=== PATIENT | male | born 1995 | race Two or more races ===

== ENCOUNTER 2016-08-19 16:03 | Emergency (ER) | payer BC ==
[2016-08-19 16:19] VITALS: BP 146/69
--- NOTE | 2016-08-19 17:14 | CR ---
Clinical history: 20-year-old male with "constipation" and abdominal pain. Interpretation: (4 films) Minimal stool identified in the ascending right colon and rectum. Large ab dominal soft tissue pannus. No foreign bodies, abdominal soft tissue mass lesion, pathologic calcification or signs of mechanica l bowel obstruction. Lung bases clear. Normal cardiac silhouette. AP lumbar spine, pelvis and hips unremarkable. CONCLUSION: Negative exam.
--- NOTE | 2016-08-19 18:01 | EDM.PDOC ---
Scribed by Saadia Moscoso 08/19/16 2022 for Isaias Childress MD ED HPI GENERAL MEDICAL PROBLEM - General Chief Complaint: Abdominal Pain Stated Complaint: POSSIBLE KIDNEY STONE [id number] Time Seen by Provider: 08/19/16 17:03 Source of Information: Reports: Patient, RN, RN Notes Reviewed History Limitations: Reports: Other - History of Present Illness INITIAL COMMENTS - FREE TEXT/NARRATIVE: Complaint of onset of left sided abdominal pain 2 days ago. Patient reports only small hard stool and constipation x1 week. Denies fever, chills, nausea, vomiting or diarrhea. Left Abdomen Pain Score (Numeric/FACES): 6 - Related Data Allergies Allergy/AdvReac Type Severity Reaction Status Date / Time cefprozil [From Cefzil] Allergy Rash Verified 08/19/16 16:20 Home Meds: Home Meds . [No Known Home Meds] 08/19/16 [History] Past Medical History HEENT History: Reports: None Cardiovascular History: Reports: None Respiratory History: Reports: None Gastrointestinal History: Reports: None Genitourinary History: Reports: None Musculoskeletal History: Reports: None Neurological History: Reports: None Psychiatric History: Reports: None Endocrine/Metabolic History: Reports: None, Obesity/BMI 30+ Hematologic History: Reports: None Immunologic History: Reports: None Oncologic (Cancer) History: Reports: None Dermatologic History: Reports: None - Infectious Disease History Infectious Disease History: Reports: None - Past Surgical History Head Surgeries/Procedures: Reports: None HEENT Surgical History: Reports: None Social & Family History - Tobacco Use Smoking Status *Q: Never Smoker Second Hand Smoke Exposure: No - Caffeine Use Caffeine Use: Reports: Soda, Tea - Recreational Drug Use Recreational Drug Use: No ED ROS GENERAL - Review of Systems Review Of Systems: ROS reveals no pertinent complaints other than HPI. ED EXAM, GI/ABD - Physical Exam Exam: See Below Exam Limited By: No Limitations General Appearance: Obese Head: Atraumatic, Normocephalic Neck: Normal Inspection, Supple, Non-Tender, Full Range of Motion Respiratory/Chest: No Respiratory Distress, Lungs Clear, Normal Breath Sounds, No Accessory Muscle Use, Chest Non-Tender Cardiovascular: Normal Peripheral Pulses, Regular Rate, Rhythm, No Edema, No Gallop, No JVD, No Murmur, No Rub GI/Abdominal: Normal Bowel Sounds, Soft, No Distention, No Abnormal Bruit, Tenderness (left upper and lower quadrant, mild. ). No: Guarding, Rebound, Rigidity (Male) Exam: Deferred Rectal (Males) Exam: Deferred Back Exam: Normal Inspection, Full Range of Motion, NT Extremities: Normal Inspection, Normal Range of Motion, Non-Tender, Normal Capillary Refill, No Pedal Edema Neurological: Alert, Oriented, CN II-XII Intact, Normal Cognition, Normal Gait, Normal Reflexes, No Motor/Sensory Deficits Psychiatric: Normal Affect, Normal Mood Skin Exam: Warm, Dry, Intact, Normal Color, No Rash Course - Vital Signs Last Recorded V/S: Last Vital Signs Temp 36.4 C 08/19/16 16:12 Pulse 96 08/19/16 16:12 Resp 16 08/19/16 16:12 BP 146/69 H 08/19/16 16:12 Pulse Ox 97 08/19/16 16:12 - Orders/Labs/Meds Labs: Laboratory Tests 08/19/16 Range/Units 16:30 Urine Color Yellow (YELLOW) Urine Appearance Clear (CLEAR) Urine pH 6.0 (5.0-9.0) Ur Specific [place] >= 1.030 (1.005-1.030) Urine Protein Negative (NEGATIVE) Urine Glucose (UA) 100 H (NEGATIVE) Urine Ketones Negative (NEGATIVE) Urine Occult Blood Negative (NEGATIVE) Urine Nitrite Negative (NEGATIVE) Urine Bilirubin Negative (NEGATIVE) Urine Urobilinogen 0.2 (0.2-1.0) mg/dL Ur Leukocyte Esterase Negative (NEGATIVE) Urine RBC 0-5 /HPF Urine WBC 0-5 (0-5/HPF) /HPF Ur Epithelial Cells Few /HPF Urine Bacteria Few (0-FEW/HPF) /HPF Urine Mucus Moderate H /LPF - Radiology Interpretation Free Text/Narrative:: Abdomen x-rays: Per rad report shows negative exam. Departure - Departure Time of Disposition: 17:38 Disposition: Home, Self-Care 01 Condition: Good Clinical Impression: Abdominal pain, Constipation - Discharge Information Instructions: Abdominal Pain, Adult, [id number], Constipation, Adult, Easy-to -Read Forms: ED Department Discharge Additional Instructions: Drink half bottle of magnesium citrate solution this evening and the other half in the morning. Drink plenty of water. Follow up in clinic if not improved in the next 102 days. Return to the emergency room if any further develops. I have read and agree with the documentation that has been completed regarding this visit. By signing this record, I attest that the documentation was completed in my physical presence and is an accurate record of the encounter.
== END 2016-08-19 17:48 | disposition home or self-care (01) ==
LOC: DL.ED 16:03
DX: K59.00 Constipation, unspecified (principal); E66.9 Obesity, unspecified; Z68.39 Body mass index [BMI] 39.0-39.9, adult; Z88.8 Allergy status to other drugs, medicaments and biological substances
CPT/HCPCS: 74020; 81001; 99284

== ENCOUNTER 2016-11-20 20:00 | Emergency (ER) | payer BC ==
[2016-11-21 02:14] VITALS: BP 138/80
[2016-11-21] MEDS ORDERED: Azithromycin 250 MG Tab PO ONE ×2 (02:51→03:01)
--- NOTE | 2016-11-21 03:06 | EDM.PDOC ---
ED HPI GENERAL MEDICAL PROBLEM - General Chief Complaint: Genitourinary Problem Stated Complaint: GROIN PAIN [id number] Time Seen by Provider: 11/21/16 02:30 Source of Information: Reports: Patient History Limitations: Reports: No Limitations - History of Present Illness INITIAL COMMENTS - FREE TEXT/NARRATIVE: ED with complaint of pain to the end of his penis he noted yesterday, no pain with urination, Few concerns with STD. Notes crusting to end of foreskin. No scrotal pain. Penis Pain Score (Numeric/FACES): 7 - Related Data Allergies Allergy/AdvReac Type Severity Reaction Status Date / Time cefprozil [From Cefzil] Allergy Rash Verified 11/20/16 20:35 Home Meds: Home Meds . [No Known Home Meds] 08/19/16 [History] Past Medical History HEENT History: Reports: None Cardiovascular History: Reports: None Respiratory History: Reports: None Gastrointestinal History: Reports: None, GERD Genitourinary History: Reports: None Musculoskeletal History: Reports: None Neurological History: Reports: None Psychiatric History: Reports: None Endocrine/Metabolic History: Reports: None, Obesity/BMI 30+ Hematologic History: Reports: None Immunologic History: Reports: None Oncologic (Cancer) History: Reports: None Dermatologic History: Reports: None - Infectious Disease History Infectious Disease History: Reports: None - Past Surgical History Head Surgeries/Procedures: Reports: None HEENT Surgical History: Reports: None Social & Family History - Family History Family Medical History: Noncontributory - Tobacco Use Smoking Status *Q: Never Smoker Second Hand Smoke Exposure: No - Caffeine Use Caffeine Use: Reports: Coffee, Energy Drinks, Soda - Recreational Drug Use Recreational Drug Use: No ED ROS GENERAL - Review of Systems Review Of Systems: ROS reveals no pertinent complaints other than HPI. ED EXAM, RENAL/ - Physical Exam Exam: See Below Exam Limited By: No Limitations General Appearance: Alert, No Apparent Distress Eye Exam: Bilateral Eye: EOMI Ears: Normal External Exam Nose: Normal Inspection Throat/Mouth: Normal Voice Neck: Normal Inspection Respiratory/Chest: No Respiratory Distress Cardiovascular: Normal Peripheral Pulses (Male) Exam: Penile Lesions (uncirmcumcised, distal foreskin when slightly retracted crusted, no single lesions noted, tender ). No: Scrotal Swelling, Scrotum Tenderness (L), Scrotum Tenderness (R) Neurological: Alert, Oriented, Normal Cognition Psychiatric: Normal Affect, Normal Mood Skin Exam: Warm, Erythema, Rash Course - Vital Signs Last Recorded V/S: Last Vital Signs Temp 96.4 F 11/21/16 02:13 Pulse 98 11/21/16 02:13 Resp 16 11/21/16 02:13 BP 138/80 11/21/16 02:13 Pulse Ox 96 11/21/16 02:13 - Orders/Labs/Meds Meds: Medications Discontinued Medications Generic Name Dose Route Start Last Admin Trade Name Pola PRN Reason Stop Dose Admin Azithromycin 1,000 mg 11/21/16 02:51 Zithromax PO 11/21/16 02:52 ONETIME ONE Azithromycin 2,000 mg 11/21/16 03:01 11/21/16 03:16 Zithromax PO 11/21/16 03:02 2,000 mg ONETIME ONE Administration Departure - Departure Time of Disposition: 03:03 Disposition: Home, Self-Care 01 Condition: Good Clinical Impression: Penile discharge, without blood - Discharge Information Instructions: Balanitis Forms: ED Department Discharge Additional Instructions: nystatin ointment to area three times daily for 5 days clinic follow up if not improving.
== END 2016-11-21 03:26 | disposition home or self-care (01) ==
LOC: DL.ED 20:00
DX: R36.9 Urethral discharge, unspecified (principal); K21.9 Gastro-esophageal reflux disease without esophagitis; E66.9 Obesity, unspecified; Z88.1 Allergy status to other antibiotic agents; Z68.41 Body mass index [BMI] 40.0-44.9, adult
CPT/HCPCS: 87491; 87591; 99283; A9270

== ENCOUNTER 2017-06-28 13:27 | Emergency (ER) | payer OTHER, BC ==
[2017-06-28 13:37] VITALS: BP 138/75
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
== END 2017-06-28 14:04 | disposition home or self-care (01) ==
LOC: DL.ED 13:27
DX: S60.416A Abrasion of right little finger, initial encounter (principal); E11.9 Type 2 diabetes mellitus without complications; X58.XXXA Exposure to other specified factors, initial encounter; Z88.8 Allergy status to other drugs, medicaments and biological substances; Z79.84 Long term (current) use of oral hypoglycemic drugs
CPT/HCPCS: 99282